=== PATIENT | female | born 1990 | race Caucasian/White ===

== ENCOUNTER 2023-09-20 09:06 | Outpatient (OUT) | payer OTHER, SELFPAY ==
--- NOTE | 2023-09-20 09:20 | US_ITS ---
[address] [address] Patient Name: RANDALL LYMAN MRN: [id number] date: 1990 Sex: F Assigned Patient Location: US Current Patient Location: US Accession/Order Number: [id number] Exam Date: 09/20/2023 09:21 Report Date: 09/20/2023 10:11 At the request of: LIZ SMITH Procedure: US pelvis w/ transvaginal EXAMINATION: US pelvis w/ transvaginal HISTORY: polycystic ovarian syndrome E28.2 COMPARISON: No relevant comparison available. TECHNIQUE: Transabdominal and/or transvaginal sonographic examination was performed as indicated by examination type. FINDINGS: UTERUS: scar within lower anterior wall, 3 mm in thickness; adjacent small hypoechoic fluid collection may represent a postsurgical seroma. Uterus size: 8.9 x 4.9 x 5.0 cm. ENDOMETRIUM: Normal homogeneous appearance. Endometrial thickness: 8 mm RIGHT OVARY: Normal size and appearance. Duplex Doppler demonstrates normal waveform and flow; resistive index 0.5. Ovary size: 3.4 x 2.6 x 2.4 cm LEFT OVARY: Normal size and appearance. Duplex Doppler demonstrates normal waveform and flow; resistive index 0.4. Ovary size: 2.2 x 2.1 x 1.9 cm CUL-DE-SAC: Unremarkable. No significant free fluid. BLADDER: Unremarkable. OTHER: None. US/US pelvis w/ transvaginal IMPRESSION: 1. Normal appearance of ovaries. 2. Thin (3 mm) scar within lower anterior uterine wall. Electronically authenticated by: JUANCARLOS ACEVEDO Date: 09/20/2023 10:11
[2023-09-20 10:15] LABS: Estimated Average Glucose 88 mg/dL; Glycohemoglobin A1C 4.7 % (4.5-6.2)
[2023-09-20 10:16] LABS: Basophils Absolute Auto 0.1 10^3/uL (0.0-0.1); Basophils Percent Auto 0.8 % (0.2-2.0); Eosinophils Absolute Auto 0.1 10^3/uL (0.0-0.7); Eosinophils Percent Auto 1.2 % (0.9-7.0); Hematocrit 41.6 % (36.0-48.0); Hemoglobin 13.7 g/dL (12.0-16.0); Immature Granulocytes Abs Auto 0.05 10^3/uL (0.00-0.03); Immature Granulocytes Pct Auto 0.8 % (0.0-0.5); Lymphocytes Absolute Auto 1.7 10^3/uL (1.2-3.8); Lymphocytes Percent Auto 26.2 % (20.5-60.0); Mean Corpuscular HGB Conc 32.9 g/dL (29.9-35.2); Mean Corpuscular Volume 94.1 fL (81.0-99.0); Mean Platelet Volume 9.4 fL (9.5-13.5); Monocytes Absolute Auto 0.6 10^3/uL (0.3-0.8); Monocytes Percent Auto 8.4 % (1.7-12.0); Neutrophils Absolute Auto 4.2 10^3/uL (1.4-6.5); Neutrophils Percent Auto 62.6 % (43.0-75.0); Platelet Count 271 10^3/uL (150-450); Red Blood Count 4.42 10^6/uL (4.20-5.40); Red Cell Distribution Width 11.9 % (11.0-15.0); White Blood Count 6.7 10^3/uL (4.0-11.0)
[2023-09-20 10:34] LABS: HCG Quantitative <1 mIU/mL; Thyroid Stimulating Hormone 1.528 uIU/mL (0.358-3.740)
[2023-09-20 10:42] LABS: Free T4 0.85 ng/dL (0.76-1.46)
[2023-09-21 04:11] LABS: FSH 8.1 mIU/mL (.)
[2023-10-01 13:08] LABS: DHEA, Serum 474 ng/dL (31-701)
== END 2023-09-20 09:07 | disposition home or self-care (01) ==
LOC: US 09:08
PROVIDERS: Visit Provider Obstetrics & Gynecology
DX: Z00.00 Encounter for general adult medical examination without abnormal findings (principal); E66.01 Morbid (severe) obesity due to excess calories; Z68.41 Body mass index [BMI] 40.0-44.9, adult; F41.9 Anxiety disorder, unspecified; G43.001 Migraine without aura, not intractable, with status migrainosus; R53.82 Chronic fatigue, unspecified; Z13.220 Encounter for screening for lipoid disorders; E28.2 Polycystic ovarian syndrome; N92.6 Irregular menstruation, unspecified
CPT/HCPCS: 36415; 76830; 76856; 80053; 80061; 82626; 82627; 83001; 83002; 83036; 84439; 84443; 84702; 85025

== ENCOUNTER 2023-09-20 09:11 | Outpatient (OUT) | payer OTHER, SELFPAY ==
[2023-09-20 10:25] LABS: Alanine Aminotransferase 19 U/L (14-59); Albumin Level 3.5 g/dL (3.4-5.0); Alkaline Phosphatase 35 U/L (46-116); Anion Gap 14.2; Aspartate Amino Transferase 11 U/L (15-37); BUN Creatinine Ratio 15.1; Bilirubin Total 0.3 mg/dL (0.2-1.0); Carbon Dioxide 25.2 mmol/L (21.0-32.0); Chloride 110 mmol/L (98-107); Chol HDL Ratio 3.8; Cholesterol 204 mg/dL (<=200); Estimated GFR (African America >60 (>=60); Estimated GFR (Non-African Ame >60 (>=60); Globulin 3.6 g/dL; Glucose 86 mg/dL (74-106); HDL Cholesterol 53 mg/dL (40-60); Potassium 4.4 mmol/L (3.5-5.1); Sodium 145 mmol/L (136-145); Total Protein 7.1 g/dL (6.4-8.2); Triglycerides 79 mg/dL (<=150); VLDL CHOLESTEROL 15.8 mg/dL
== END 2023-09-20 09:12 | disposition home or self-care (01) ==
LOC: LAB 09:13
DX: Z00.00 Encounter for general adult medical examination without abnormal findings (principal); E66.01 Morbid (severe) obesity due to excess calories; Z68.41 Body mass index [BMI] 40.0-44.9, adult; F41.9 Anxiety disorder, unspecified; G43.001 Migraine without aura, not intractable, with status migrainosus; R53.82 Chronic fatigue, unspecified; Z13.220 Encounter for screening for lipoid disorders
CPT/HCPCS: 36415; 80053; 80061

== ENCOUNTER 2023-10-08 09:42 | Outpatient (OUT) | payer OTHER, SELFPAY ==
--- OUTSIDE RECORDS SUMMARY | 2023-10-08 09:55 | XMS_ITS | CCD ---
Author Name Unknown Address [address] [place] [address] Organization [facility] Care Team Providers Care Waste Salvager Name Role Phone EUN BARRIENTOS Referring Unavail able EUN BARRIENTOS Primary Care Unavail able LIZ VALENTINE Attending Unavailable FERNANDEZ CHISHOLM Referring Unavailable FERNANDEZ CHISHOLM Attending Unavailable Grace Mathews MD Unavailable [phone] Eun Garcia NP Primary Care Provider Allergies Allergy Classification Reported Allergen(s) Allergy Type Date of Onset Reaction(s) Facility (3 sources) OTHER; Translations: [OTHER] Propensity to adverse reactions (disorder) 7 [facility] Medications Current Medications Medication Drug Class(es) Dates Sig (Normalized) Sig (Original) acyclovir 400 mg oral tablet (2 sources) Herpesvirus Nucleoside Analog DNA Polymerase Inhibitor, Herpes Simplex Virus Nucleoside Analog DNA Polymerase Inhibitor, Herpes Zoster Virus Nucleoside Analog DNA Polymerase Inhibitor take 1 tablet by mouth in the morning acyclovir (Zovirax) 400 MG tablet Take 400 mg by mouth in the morning and 400 mg before bedtime. 0 Active [id number] 200 actuat albuterol 0.09 mg/actuat metered dose inhaler (2 sources) beta2-Adrenergic Agonist albuterol HFA 90 mcg/act inhaler every 6 (six) hours 0 Active 24 hr buPROPion hydrochloride 300 mg extended release oral tablet (2 sources) Aminoketone Start: 05-27-2023 take 1 tablet by mouth every twenty-four hours in the morning buPROPion XL (Wellbutrin XL) 300 MG 24 hr tablet Take 300 mg by mouth in the morning. 0 05/27/2023 Active drospirenone 4 mg oral tablet (2 sources) Progestin Start: 07-12-2023 take 1 tablet by mouth in the morning Drospirenone 4 MG tablet Indications: Unwanted fertility Take 1 tablet by mouth in the morning. 90 tablet 3 07/12/2023 Active 24 hr metFORMIN hydrochloride 500 mg extended release oral tablet (2 sources) Biguanide Start: 09-02-2023 End: 10-02-2023 take 1 tablet by mouth every twenty-four hours at mealtime metFORMIN XR (Glucophage-XR) 500 MG 24 hr tablet Indications: PCOS (polycystic ovarian syndrome) , Irregular periods/menstrual cycles Take 1 tablet (500 mg) by mouth in the evening. Take with meals Do not crush, chew, or split. 30 tablet 11 09/02/2023 10/02/2023 Active phentermine hydrochloride 37.5 mg oral tablet (2 sources) Sympathomimetic Amine Anorectic Start: 06-29-2023 take 1 tablet by mouth before mealtime phentermine (Adipex-P) 37.5 MG tablet Take 37.5 mg by mouth in the morning. Take before meals. 0 06/29/2023 Active Problems Problem Classification Problem Date Documented Da te Episodic/Chronic Administrative/social admission (2 sources) Counseling procedure with explicit context; Translations: [Other specified counseling] 08-31-2023 Episodic Menstrual disorders (2 sources) Irregular periods; Translations: [Irregular menstruation, unspecified] 09-02-2023 Chronic Other endocrine disorders (2 sources) Polycystic ovary syndrome; Translations: [Polycystic ovarian syndrome] 09-02-2023 Chronic Other non-traumatic joint disorders (1 source) Pain in right shoulder; Translations: [Pain in right shoulder] Onset: 08-04-2023 Episodic Results Test Name Value Interpretation Reference Range Facil ity BI MAMMOGRAM SCREENING TOMOS YNTHESIS BILATERALon 09-02-2023 BI MAMMOGRAM SCREENING TOMOSYNTHESIS BILATERAL This is a summary report. The complete report is available in the patient's medical record. If you cannot access the medical record, please contact the sending organization for a detailed fax or copy. EXAMINATION: BI MAMMOGRAM SCREENING TOMOSYNTHESIS BILATERAL CLINICAL HISTORY:breast cancer screening COMPARISON: There are no previous mammograms available for comparison. RESULT: Digital mammography and 3D tomosynthesis of bilateral breasts was performed. Density: Almost entirely fatty [1] There is no suspicious mass, asymmetry, architectural distortion, or calcification. Typically benign calcifications. IMPRESSION: BIRADS 2 - Benign Follow-up: Routine Screening Mamm Board Certified Radiologists. Accredited by the ACR and FDA. MAMMOGRAPHY IS VERY IMPORTANT TO YOUR HEALTH. THE [place] [employer] GUIDELINES RECOMMEND THAT WOMEN 40 YEARS OF AGE AND OLDER SHOULD HAVE A MAMMOGRAM EVERY YEAR. A REMINDER LETTER WILL BE SENT AT THE APPROPRIATE TIME. THIS FACILITY UTILIZES A REMINDER SYSTEM TO ENSURE ALL PATIENTS RECEIVE REMINDER NOTIFICATIONS AT THE APPROPRIATE TIME BASED ON THE RECOMMENDATIONS OF THIS EXAM. THIS INCLUDES REMINDERS FOR ROUTINE SCREENING MAMMOGRAMS, DIAGNOSTIC MAMMOGRAMS IN WHICH THE PATIENT IS ASKED TO RETURN FOR ADDITIONAL VIEWS, OR OTHER BREAST IMAGING INTERVENTIONS WHEN APPROPRIATE. THE PATIENT WILL BE PLACED IN THE APPROPRIATE REMINDER SYSTEM INCLUDING A REMINDER AT THE APPROPRIATE TIME FOR ANY PENDING ADDITIONAL VIEWS. TRANSCRIBED BY: ELECTRONICALLY SIGNED BY: Emanuel Schilling MD Normal Not Available Comment on above: Order Comment: Multi ple attempts to schedule with no response XR SHOULDER RT MIN 2 VWSon 0 08-05-2023 XR SHOULDER RT MIN 2 VWS XR SHOULDER RT MIN 2 VWS XR SHOULDER RT MIN 2 VWS History: Acute pain of right shoulder Findings: There is no fracture, dislocation, or destructive lesion. Impression: * No acute findings. Consider MR if you suspect occult internal derangement 0 Finalized by Donovan Bach MD on 08/05/2023 9:13 AM Normal [facility] Cytology Cervical or vaginal smear or scraping studyon 07-13-2023 [facility] XR Hip Complete Righton 09-02 XR Hip Complete Right FINDINGS: Normal hip joint spaces. No significant pincer or CAM deformities are seen. No cortical or stress fracture is identified. Pelvic ring and sacral struts are intact. Soft tissues are relatively unremarkable. IMPRESSION: Minimal arthritis. Report reported and signed by Emanuel Schilling on 09/12/2021 1624 Normal [facility] Specialist Vital Signs Date Time Vital Sign Value Performing Clinician Michaelle wu 09-02-2023 09:16-0500 Body mass index (BMI) [Ratio] 41.66 kg/m2 Genwords DO Work Phone: [facility] 09-02-2023 09:16-0500 Body weight 124.29 kg Genwords DO Work Phone: [facility] 09-02-2023 09:16-0500 Diastolic blood pressure 74 mm[Hg] Liz Vaughnzio DO Work Phone: [facility] 09-02-2023 09:16-0500 Systolic blood pressure 120 mm[Hg] Liz Meme DO Work Phone: [facility] Encounters Encounter Date Encounter Type Care Provider Facility Start: 09-02-2023 End: 09-03-2023 ambulatory FERNANDEZ CHISHOLM Not Available Start: 09-02-2023 End: 09-02-2023 ambulatory LIZ MEME Not Available Start: 09-02-2023 End: 09-02-2023 Office outpatient visit 15 minutes Liz Meme DO Work Phone: [facility] Comment on above: Encounter to discuss procedure; PCOS (polycystic ovarian syndrome); Irregular periods/menstrual cycles Start: 08-04-2023 End: [facility]: 07-12-2023 End: 07-13-2023 ambulatory FERNANDEZ CHISHOLM Not Available Procedures Date Procedure Procedure Detail Performing Clinician Start: 07-13-2023 Microscopic observat ion [Identifier] in Cervix by Cyto stain Liz Meme DO Work Phone: Start: 07-13-2023 Cytp cerv/vag auto t hin layer prep mnl screen Fernandez Chisholm CN Work Phone: Plan of Treatment Date Care Activity Detail Author Start: 07-13-2028 Screening for malign ant neoplasm of cervix [facility] Start: 07-11-2024 End: 07-11-2024 Patient encounter procedure 07/11/2024 10:00 AM EST Office Visit [facility] [address] [place] [address] Fernandez Chisholm CNM [address] [place] [address] [facility] Start: 09-27-2023 End: 09-27-2023 Patient encounter procedure 09/27/2023 2:30 PM EST Procedure Visit [facility] [address] [place] [id number] Liz Valentine DO [address] [place] [address] [facility] Start: 09-02-2023 End: 09-02-2024 DHEA DHEA Lab Routine PCOS (polycystic ovarian syndrome) Expected: 09/02/2023 (Approximate), Expires: 09/02/2024 [facility] Comment on above: Expected: 09/02/2023 (Approximate), Expires: 09/02/2024 CBC W Auto Different ial panel - Blood CBC and differential Lab Routine PCOS (polycystic ovarian syndrome) Ordered: 09/02/2023 [facility] Comment on above: Ordered: 09/02/2023 DHEA-sulfate DHEA-sulfate Lab Routine PCOS (polycystic ovarian syndrome) Ordered: 09/02/2023 [facility] Comment on above: Ordered: 09/02/2023 Follicle stimulating hormone Follicle stimulating hormone Lab Routine PCOS (polycystic ovarian syndrome) Ordered: 09/02/2023 [facility] Comment on above: Ordered: 09/02/2023 hCG, quantitative, hCG, quantitative, Lab Routine PCOS (polycystic ovarian syndrome) Ordered: 09/02/2023 [facility] Work Phone: Comment on above: Ordered: 09/02/2023 Hemoglobin A1c measurement Hemoglobin A1c Lab Routine PCOS (polycystic ovarian syndrome) Irregular periods/menstrual cycles Ordered: 09/02/2023 [facility] Comment on above: Ordered: 09/02/2023 Luteinizing hormone Luteinizing hormone Lab Routine PCOS (polycystic ovarian syndrome) Ordered: 09/02/2023 [facility] Comment on above: Ordered: 09/02/2023 Thyrotropin [Units/volume] in Serum or Plasma TSH Lab Routine PCOS (polycystic ovarian syndrome) Ordered: 09/02/2023 [facility] Comment on above: Ordered: 09/02/2023 Thyroxine (T4) free [Mass/volume] in Serum or Plasma T4, free Lab Routine PCOS (polycystic ovarian syndrome) Ordered: 09/02/2023 [facility] Comment on above: Ordered: 09/02/2023 US for US PELVIS-TRANS VAG IF INDICATED Imaging Routine PCOS (polycystic ovarian syndrome) Ordered: 09/02/2023 [facility] Comment on above: Ordered: 09/02/2023 Payers Date Payer Category Payer Private Health Insurance [id number] 2022 Private Health Insurance [facility] [id number] 2022-Present [address] [address] [place] [address] [id number] 2019 Medicaid [id number] 1990 Unknown [id number] 1990 Unknown [id number] 1990 Unknown [id number] 1990 Unknown [id number] Social History Date Type Detail Facility Start: 07-12-2023 Tobacco smoking stat [facility] Never smoked tobacco [facility] Start: 07-12-2023 Tobacco use and exposure Smokeless t obacco non-user [facility] Start: 09-02-2023 Alcohol intake Current drinke r of alcohol (finding) [facility] Start: 09-02-2023 History of Social function [facility] Start: 09-02-2023 Tobacco use panel [facility] Start: 1990 Sex Assigned At Not on file [facility] History of Present illness Narrative 09-02-2023 Liya Joseph LPN - 09/02/2023 9:10 AM EST Note Date & Type Note Facility 09-02-2023 History of Presen t illness Narrative Reason for Appointment: Patient ID: Randall Lyman is a 33 y.o. female who presents for Surgery consult Patient presents today for Consult appointment. Current Medications: has a current medication list which includes the following prescription(s): acyclovir, albuterol hfa, bupropion xl, drospirenone, and phentermine. Medical History: Active Ambulatory Problems Diagnosis Date Noted No Active Ambulatory Problems Resolved Ambulatory Problems Diagnosis Date Noted No Resolved Ambulatory Problems Past Medical History: Diagnosis Date Acute maxillary sinusitis Asthmatic bronchitis with exacerbation ([facility]) Cystic acne No family history on file. Social History Tobacco Use Smoking status: Never Smokeless tobacco: Never Substance Use Topics Alcohol use: Yes Drug use: Not on file Past Surgical History: Procedure Laterality Date BREAST SURGERY reduction SECTION, LOW TRANSVERSE DENTAL SURGERY tooth extraction Allergies Allergen Reactions Other Review of Systems: Review of Systems Constitutional: Negative. HENT: Negative. Eyes: Negative. Respiratory: Negative. Cardiovascular: Negative. Gastrointestinal: Negative. Genitourinary: Negative. Musculoskeletal: Negative. Skin: Negative. Neurological: Negative. All other systems reviewed and are negative. Hematological: Negative. Endocrine: Negative. Allergic/Immunologic: Negative. Objective Physical Exam Constitutional: Appearance: Normal appearance. She is well-developed. Cardiovascular: Rate and Rhythm: Normal rate and regular rhythm. Pulmonary: Effort: Pulmonary effort is normal. Breath sounds: Normal breath sounds. Abdominal: General: Bowel sounds are normal. There is no distension. Palpations: Abdomen is soft. Tenderness: There is no abdominal tenderness. There is no guarding or rebound. Musculoskeletal: General: No swelling. Normal range of motion. Right lower leg: No edema. Left lower leg: No edema. Neurological: Mental Status: She is alert and oriented to person, place, and time. Skin: General: Skin is warm and dry. Psychiatric: Mood and Affect: Mood normal. Behavior: Behavior normal. Vitals and nursing note reviewed. Exam conducted with a display decorator present. Vitals: Estimated body mass index is 41.66 kg/m as calculated from the following: Height as of 07/12/23: 5' 8 . Weight as of this encounter: 274 lb. BP: 120/74 No LMP recorded. Patient has had an injection. Assessment/Plan Encounter Diagnosis Name Primary? Encounter to discuss procedure Patient presents today for referral appointment from Maxine Chisholm for consult for bilateral salpingectomy and endometrial ablation. Patient is currently on Slynd and was previously on Adipex 37.5mg. Patient has history of 3 c-sections and 2 D&C's. Discussed Metformin with patient and patient will start on medication for PCOS and insulin resistance. Patient to have labs and US done prior to next appointment. Metformin sent to [facility] in [place]. Patient to schedule appointment for Pre-op/Endometrial biopsy. Requested that with US special attention be noted for uterine scar from previous surgeries as this will determine plan of care. PVU and will return to clinic for pre-op and biopsy. Documented by Liya Joseph LPN on behalf of: Liz Valentine DO documented in this encounter [facility] Evaluation note Note Date & Type Note Facility Evaluation note Diagnosis Encounter to discuss procedure PCOS (polycystic ovarian syndrome) Polycystic ovaries Irregular periods/menstrual cycles documented in this encounter [facility] Summary Purpose Family History No Family History Records FoundNo Family History Records FoundNo Family History Records Found Advance Directives No Advanced Directives Records FoundNo Advanced Directives Records FoundNo Advanced Directives Records Found Additional Source Comments INFORMATION SOURCE (unrecogn ized section and content) DATE CREATED AUTHOR 09/13/2021 [facility] dical Specialist DATE CREATED AUTHOR AUTHOR'S ORGANIZ ATION 08/08/2023 [facility] DATE CREATED AUTHOR AUTHOR'S ORGANIZ ATION 09/06/2023 [facility] dical Specialists EPIC Reason for Visit (unrecogniz ed section and content) Reason Comments Surgery consult Care Teams (unrecognized sec tion and content) Waste Salvager Relationship Specialty Start Date End Date Grace Mathews MD [address] [place] [address] PCP - External PCP Family Medicine 01/09/23 Eun Garcia NP [address] [place] [address] PCP - General Family Medicine 09/02/23 FOR RECORDS PERTAINING TO PATIENTS WHO ARE OR HAVE BEEN ENROLLED IN A CHEMICAL DEPENDENCY/SUBSTANCEABUSE PROGRAM, SOME INFORMATION MAY BE OMITTED. This clinical summary was aggregated from multiple sources. Caution should be exercised in using it in the provision of clinical care. This summary normalizes information from multiple sources, and as a consequence, information in this document may materially change the coding, format and clinical context of patient data. In addition, data may be omitted in some cases. CLINICAL DECISIONS SHOULD BE BASED ON THE PRIMARY CLINICAL RECORDS. [facility]. provides no warranty or guarantee of the accuracy or completeness of information in this document.
--- NOTE | 2023-10-08 10:08 | ECG_ITS ---
[facility] Test Date: 2023-10-08 Pat Name: RANDALL LYMAN Department: Room: - Gender: Female Audio/Video Engineer: : 1990 Requested By: LIZ SMITH Order Number: [id number] Reading MD: JOÃO REYNOLDS Measurements Intervals [place] Rate: 78 P: 48 MA: 148 QRS: 25 QRSD: 95 T: 28 QT: 364 QTc: 415 Interpretive Statements SINUS RHYTHM No previous ECG available for comparison Electronically Signed On 10-09-2023 11:01:42 EST by JOÃO REYNOLDS
== END 2023-10-08 09:43 | disposition home or self-care (01) ==
LOC: PST 09:42
PROVIDERS: Visit Provider Obstetrics & Gynecology
DX: Z01.810 Encounter for preprocedural cardiovascular examination (principal); N92.0 Excessive and frequent menstruation with regular cycle; R10.2 Pelvic and perineal pain
CPT/HCPCS: 93005

== ENCOUNTER 2023-10-22 06:11 | Day surgery (SDC) | payer OTHER, SELFPAY ==
[2023-10-08 10:13] VITALS: BP 129/84; PULSE 81; RESP 16; TEMP 36.3; O2SAT 98; BMI 42.4
[2023-10-22] VITALS (12 sets, daily range): BP systolic 116–139; BP diastolic 76–87; PULSE 64–89; RESP 12–22; TEMP 36.2–36.3; O2SAT 94–100; BMI 42.4
--- OUTSIDE RECORDS SUMMARY | 2023-10-22 06:14 | XMS_ITS | CCD ---
Author Organization [facility] Care Team Providers Care Certified Medical Transcriptionist Name Role Phone ELMER BARRIENTOS Referring Unavail able ELMER BARRIENTOS Primary Care Unavail able LIZ VALENTINE Attending Unavailable FERNANDEZ CHISHOLM Referring Unavailable FERNANDEZ CHISHOLM Attending Unavailable Grace Mathews MD Unavailable Elmer Garcia NP Primary Care Provider Allergies Allergy [...] and 400 mg before bedtime. 0 Active [id number] 200 actuat albuterol 0.09 mg/actuat metered dose [...] IS VERY IMPORTANT TO YOUR HEALTH. THE [employer] GUIDELINES RECOMMEND THAT WOMEN 40 [...] Bach MD on 08/05/2023 9:13 AM Normal [facility] Cytology Cervical or vaginal smear or scraping studyon 07-13-2023 [facility] Healthcar e XR Hip Complete Righton 09-02 XR Hip Complete Right FINDINGS: Normal hip joint spaces. No significant pincer or CAM deformities are seen. No cortical or stress fracture is identified. Pelvic ring and sacral struts are intact. Soft tissues are relatively unremarkable. IMPRESSION: Minimal arthritis. Report reported and signed by Emanuel Schilling on 09/12/2021 1624 Normal [facility] Vital Signs Date Time Vital Sign Value Performing Clinician Faci lity 09-02-2023 09:16-0500 Body mass index (BMI) [Ratio] 41.66 kg/m2 Grid20/20 Work Phone: [facility] [employer] 09-02-2023 09:16-0500 Body weight 124.29 kg Five9 Phone: [facility] 09-02-2023 09:16-0500 Diastolic blood pressure 74 mm[Hg] Liz Meme DO Work Phone: [facility] Healthcare 09-02-2023 09:16-0500 Systolic blood pressure 120 mm[Hg] Liz Kelleyo DO Work Phone: [facility] Healthcare Encounters Encounter Date Encounter Type Care Provider Facility Start: 09-02-2023 End: 09-03-2023 ambulatory FERNANDEZ CHISHOLM Not Available Start: 09-02-2023 End: 09-02-2023 ambulatory LIZ VALENTINE Not Available Start: 09-02-2023 End: 09-02-2023 Office outpatient visit 15 minutes Liz Valentine DO Work Phone: [facility] Comment on above: Encounter to discuss procedure; PCOS (polycystic ovarian syndrome); Irregular periods/menstrual cycles Start: 08-04-2023 End: 08-05-2023 ambulatory ELMER Cespedes [facility] Start: 07-12-2023 End: 07-13-2023 ambulatory FERNANDEZ CHISHOLM Not Available Procedures Date Procedure Procedure Detail Performing Clinician Start: 07-13-2023 Microscopic observat ion [Identifier] in Cervix by Cyto stain Liz Valentine DO Work Phone: Start: 07-13-2023 Cytp cerv/vag auto t hin layer prep mnl screen Fernandez Chisholm CN Work Phone: Plan of Treatment Date Care Activity Detail Author Start: 07-13-2028 Screening for malign ant neoplasm of cervix [facility] Healthcare Start: 07-11-2024 End: 07-11-2024 Patient encounter procedure 07/11/2024 10:00 AM EST Office Visit [facility] [address] [place] [address] Fernandez Chisholm CNM [address] [place] [address] [facility] Start: 09-27-2023 End: 09-27-2023 Patient encounter procedure 09/27/2023 2:30 PM EST Procedure Visit [facility] [address] [place] [address] [place] [address] Liz Valentine, [address] [place] [address] [facility] Start: 09-02-2023 End: 09-02-2024 DHEA DHEA Lab Routine PCOS (polycystic ovarian syndrome) Expected: 09/02/2023 (Approximate), Expires: 09/02/2024 [facility] Comment on above: Expected: 09/02/2023 (Approximate), Expires: 09/02/2024 CBC W Auto Different ial panel - Blood CBC and differential Lab Routine PCOS (polycystic ovarian syndrome) Ordered: 09/02/2023 [facility] Comment on above: Ordered: 09/02/2023 DHEA-sulfate DHEA-sulfate Lab Routine PCOS (polycystic ovarian syndrome) Ordered: 09/02/2023 [facility] Comment on above: Ordered: 09/02/2023 Follicle stimulating hormone Follicle stimulating hormone Lab Routine PCOS (polycystic ovarian syndrome) Ordered: 09/02/2023 [facility] Comment on above: Ordered: 09/02/2023 hCG, quantitative, hCG, quantitative, Lab Routine PCOS (polycystic ovarian syndrome) Ordered: 09/02/2023 [facility] Work Phone: Comment on above: Ordered: 09/02/2023 Hemoglobin A1c measurement Hemoglobin A1c Lab Routine PCOS (polycystic ovarian syndrome) Irregular periods/menstrual cycles Ordered: 09/02/2023 [facility] Comment on above: Ordered: 09/02/2023 Luteinizing hormone Luteinizing hormone Lab Routine PCOS (polycystic ovarian syndrome) Ordered: 09/02/2023 [facility] Comment on above: Ordered: 09/02/2023 Thyrotropin [Units/volume] in Serum or Plasma TSH Lab Routine PCOS (polycystic ovarian syndrome) Ordered: 09/02/2023 [facility] Comment on above: Ordered: 09/02/2023 Thyroxine (T4) free [Mass/volume] in Serum or Plasma T4, free Lab Routine PCOS (polycystic ovarian syndrome) Ordered: 09/02/2023 [facility] Comment on above: Ordered: 09/02/2023 US for US PELVIS-TRANS VAG IF INDICATED Imaging Routine PCOS (polycystic ovarian syndrome) Ordered: 09/02/2023 [facility] Comment on above: Ordered: 09/02/2023 Payers Date Payer Category Payer Private Health Insurance [id number] 2022 Private Health Insurance [facility] [id number] 2022-Present [address] [address] [place] [address] [id number] 2019 Medicaid [id number] 1989 Unknown [id number] 1989 Unknown [id number] 1989 Unknown [id number] 1989 Unknown [id number] Social History Date Type Detail Facility Start: 07-12-2023 Tobacco smoking stat [facility] Never smoked tobacco [facility] Start: 07-12-2023 Tobacco use and exposure Smokeless t obacco non-user [facility] Start: 09-02-2023 Alcohol intake Current drinke r of alcohol (finding) [facility] Start: 09-02-2023 History of Social function [facility] Start: 09-02-2023 Tobacco use panel [facility] Start: 1990 Sex Assigned At Not on file [facility] History of Present illness Narrative 09-02-2023 [...] Acute maxillary sinusitis Asthmatic bronchitis with exacerbation (CMS/HCC) Cystic acne No family history on file. [...] nursing note reviewed. Exam conducted with a studio producer present. Vitals: Estimated body mass index is [...] prior to next appointment. Metformin sent to [facility] in [place]. Patient to schedule appointment for Pre-op/Endometrial biopsy. [...] section and content) DATE CREATED AUTHOR 09/13/2021 [facility] DATE CREATED AUTHOR AUTHOR'S ORGANIZ ATION 08/08/2023 [facility] DATE CREATED AUTHOR AUTHOR'S ORGANIZ ATION 09/06/2023 [facility] EPIC Reason for Visit (unrecogniz ed section and content) Reason Comments Surgery consult Care Teams (unrecognized sec tion and content) Certified Medical Transcriptionist Relationship Specialty Start Date End Date Grace Mathews MD [address] [place] [id number] PCP - External PCP Family Medicine 01/09/23 Elmer Garcia NP [address] [place] [address] PCP - General Family Medicine 09/02/23 FOR [...] BE BASED ON THE PRIMARY CLINICAL RECORDS. [facility] [employer] [facility]. provides no warranty or guarantee of the accuracy or completeness of information in this document.
[2023-10-22 06:19] LABS: Basophils Absolute Auto 0.1 10^3/uL (0.0-0.1); Basophils Percent Auto 0.6 % (0.2-2.0); Eosinophils Absolute Auto 0.1 10^3/uL (0.0-0.7); Eosinophils Percent Auto 1.2 % (0.9-7.0); Hematocrit 42.1 % (36.0-48.0); Hemoglobin 14.2 g/dL (12.0-16.0); Immature Granulocytes Abs Auto 0.04 10^3/uL (0.00-0.03); Immature Granulocytes Pct Auto 0.4 % (0.0-0.5); Lymphocytes Absolute Auto 1.6 10^3/uL (1.2-3.8); Lymphocytes Percent Auto 17.2 % (20.5-60.0); Mean Corpuscular HGB Conc 33.7 g/dL (29.9-35.2); Mean Corpuscular Hemoglobin 31.9 pg (26.7-34.0); Mean Corpuscular Volume 94.6 fL (81.0-99.0); Mean Platelet Volume 9.2 fL (9.5-13.5); Monocytes Absolute Auto 0.6 10^3/uL (0.3-0.8); Monocytes Percent Auto 6.1 % (1.7-12.0); Neutrophils Absolute Auto 6.7 10^3/uL (1.4-6.5); Neutrophils Percent Auto 74.5 % (43.0-75.0); Platelet Count 275 10^3/uL (150-450); Red Blood Count 4.45 10^6/uL (4.20-5.40); Red Cell Distribution Width 12.2 % (11.0-15.0)
[2023-10-22 06:39] LABS: HCG Quantitative <1 mIU/mL
[2023-10-22] MEDS: LACTATED RINGER'S SOLUTION 1,000 ML 50 ML IV ×2 (06:56→09:15)
[2023-10-22 07:02] LABS: Glucometer 91 mg/dL (74-106)
[2023-10-22] MEDS: SCOPOLAMINE 1 MG/3 DAYS TRANSDERM PATCH 1 PATCH TD (07:02)
--- NOTE | 2023-10-22 09:06 | PM.ONB ---
Brief Operative Note Date of procedure: 10/22/23 Pre-op diagnosis: menorrhagia, desires permanent sterilization, pelvic pain Post-op diagnosis: same as pre-op Procedure: NAME OF PROCEDURE: [ D&c hysteroscopy, robotic assisted bilateral salpingectomy, placement of iud] findings-normal appearing tubes and ovaries, slightly adenomyotic appearing uterus, significant adhesions of bladder to anterior portion of uterus PROCEDURE: The patient was taken back to the Operating Room where she was prepped and draped in normal sterile fashion after being placed under general anesthesia without difficulty. She was also placed in the dorsal lithotomy position. A weighted speculum was placed in the patient?s vagina. The anterior lip of the cervix was identified and grasped with a single tooth tenaculum. The patient?s uterus was then sounded roughly to [? 8] cm. The patient was then gently dilated using Hegar dilators. The hysteroscope was passed through the patient?s cervix into the uterus. Both ostia were identified. fluffy appearing endometrium. No gross evidence of malignancy, no gross evidence of polyps or fibroids. gentle currettage was performed, endometrial currettings sent to pathology., The hysteroscope was then removed from the uterus. The endometrial curettings were sent out to pathology. The single tooth tenaculum was then removed from the patient's anterior lip of the cervix where excellent hemostasis was noted. The iud was then placed without difficulty, All instruments were removed from the patient?s vagina. . A wet sponge stick was placed into the patient's vagina. Attention was then turned to the patient's abdomen, where a scalpel was used to make a small infraumbilical incision. The S retractors were then used to dissect the underlying layers until the fascia could be seen. The fascia was then grasped with Jaime clamps and tented up. A knife was then used to make a small incision to the fascia. The muscle was identified, at that time two sutures of #0 Vicryl on a GI needle was then used and placed through the fascia. the peritoneum was then identified and entered bluntly. The 10-4 Kris was then placed into the patient's abdomen. This was confirmed with direct visualization of the bowel, using the laparoscope. The patient's abdomen was then insufflated using approximately 4 liters of CO2 gas. Survey of the patient's abdomen demonstrated ovaries were normal in appearance as well as both tubes and uterus. A second and third rt and lt lateral robotic ports which were 8 mm in size, was then placed after the skin incision was made under direct visualization . the robotic arms were engaged. The patient's tube on the patient's right side was identified and tented up using a grasper, the ligasure apparatus was then used to come across the mesosalpingx from the fimbriated end to the insertion site at the uterus, the tube was then amputated and removed in its entirety. This was done on the contralateral side. The tubes were the removed from the patients abdomen. Excellent hemostasis was noted. The lateral ports were then moved under direct visualization with excellent hemostasis. All instruments were removed from the patient's abdomen. The fascia was closed using the #0 Vicryl on GI needle. The skin was closed using 4-0 Vicryl subcuticularly. All instruments were removed from the patient's vagina as well. The patient was taken out of the dorsal lithotomy position and placed in the supine position and taken to recovery in stable condition. Sponge, lap and needle counts were correct x2. Anesthesia: TOMAZS Surgeon: Dylan Valentine Annealing Torch Operator: Vale Myrick Estimated blood loss (mL): 10 Pathology: other (tubes and endometrial currettings) Condition: stable Disposition: PACU Urinary Catheter Management Urinary Catheter Management Urethral: Cath placed during this visit: no
== END 2023-10-22 11:10 | disposition home or self-care (01) ==
PROVIDERS: Visit Provider Obstetrics & Gynecology
PROC: (CPT 840; principal; 2023-10-22 07:30)
PROC: (CPT 840; 2023-10-22 07:30)
DX: Z30.2 Encounter for sterilization (principal); N92.0 Excessive and frequent menstruation with regular cycle; R10.2 Pelvic and perineal pain; N73.6 Female pelvic peritoneal adhesions (postinfective); Z87.891 Personal history of nicotine dependence; J45.909 Unspecified asthma, uncomplicated
CPT/HCPCS: 58300; 58558; 58661; 36415; 82948; 84702; 85025; 88302; 88305; 99999; J1094; J1170; J2704